=== PATIENT | female | born 1990 | race Caucasian/White ===

== ENCOUNTER → 2020-04-10 | Outpatient (CLI) | payer BC ==
--- NOTE | 2020-04-10 16:55 | RAD ---
Examination: Ultrasound right axilla HISTORY: History of lump in the right exiting COMPARISON: None available Findings/ impression: Ultrasound of the right axilla demonstrates 3.0 x 6.1 x 2.1 cm isoechogenicity echogenicity identifie d could be prominent appearing subcutaneous fat or lipoma. Electronically signed by: Ravindra Ridley MD (04/10/2020 4:53 PM) [id number]
== END ==
LOC: PMG 12:08
PROVIDERS: ATTEND Family Medicine
DX: R22.31 Localized swelling, mass and lump, right upper limb (principal)
CPT/HCPCS: 76881

== ENCOUNTER → 2020-06-05 | Outpatient (CLI) | payer BC ==
[~2020-06-05] MED LIST: SERT100T PO
== END ==
LOC: LAB 07:30
PROVIDERS: ATTEND Nurse Anesthetist, Certified Registered
DX: Z01.812 Encounter for preprocedural laboratory examination (principal); D17.9 Benign lipomatous neoplasm, unspecified; Z20.822 Contact with and (suspected) exposure to COVID-19
CPT/HCPCS: U0003

== ENCOUNTER → 2020-06-09 | Day surgery (SDC) | payer BC ==
[~2020-06-09] MED LIST changes: +ACETAMINOPHEN 500 MG TABLET PO ONE; +BUPIVACAINE-EPI 0.25%-1:200000 MPF 30 ML VIAL. INJ ONE; +BUPIVACAINE-EPI 0.25%-1:200000 MPF 30 ML VIAL. ONE; +IPRATRPIUM/ALBUTEROL 0.5/2.5MG 3 ML NEBU. NEB PRN; +IV RINGERS SOLUTION,LACTATED 1,000 ML IV SCH; +MIDAZOLAM HCL PF 2 MG/2 ML VIAL. IV ONE; +ONDANSETRON PF 4 MG/2 ML VIAL. IV PRN; +PROPOFOL 10,000 MCG/ML (20ML) VIAL IV ONE
[2020-06-09 10:59] LABS: U PREG PATIENT NEGATIVE (NEG)
--- NOTE | 2020-06-09 12:38 | PDOC4 ---
Operative Report DATE June 092020 at 1236 Preop Diagnosis Right axillary mass Post-op Diagnosis Same Operation Performed Excision of right axillary mass The patient is 29-year-old female complains of a enlarging right axillary mass. Ultrasound showed characteristics of lipoma. Procedure of excision was explained to the patient detail was benefits were also discussed including bleeding infection alternatives of this procedure also discussed with patient who seemed to understand and gave a verbal written consent to have the procedure performed. Patient was taken to the operating room placed in the supine position IV sedation was initiated by anesthesia once patient was prep was sedated her axilla was prepped and draped usual sterile fashion using ChloraPrep. An area over the mass was injected with quarter percent Marcaine with epinephrine incision made with a 15 blade scalpel this was carried down through the subcutaneous tissue using electrocautery to provide hemostasis. The mass was sharply excised and sent for pathology the mass size was 10 x 8 cm the incision size was 8 cm. Wound was then closed in 2 layers the deep layer running 3-0 Vicryl and the skin was reapproximated for subcuticular Monocryl Mastisol Steri-Strips and island dressings were applied. Patient was awakened and extubated in the operating room taken to recovery in stable condition all sponge instrument needle counts listed as correct estimated blood loss 5 mL Surgeon Josué ANESTHESIA PROPOSED: MAC, LOCAL Blood Loss 5 mL Specimen Right axillary mass 10 x 8 cm Complications None RACHAEL DA SILVA MD Jun 09, 2020 12:38
--- NOTE | 2020-06-09 12:40 | DISCH ---
DISCHARGE INSTRUCTIONS-DC Condition on Discharge Condition on Discharge: Stable Activity after Discharge Activity Instructions for Disc: Avoid exertion Diet after Discharge Diet after Discharge: Regular Wound/Incision Care Other wound/incision instructi: Betsy shower in 24 hours Contacting the DRPaul after DC Call your doctor for: If your condition worsens Follow-Up Follow up with: Dr. Da Silva in 2 weeks RACHAEL DA SILVA MD Jun 09, 2020 12:40
[2020-06-09 13:14] VITALS: BP 145/92
--- NOTE | 2020-06-12 15:08 | PATHOLOGY ---
[facility] Accession Number: [id number] . 01 Material submitted: . axilla - RIGHT AXILLARY MASS. Modifiers: right . 02 Diagnosis: Fibroadipose tissue, right axillary mass excision: - Ectopic breast tissue, showing focal stromal fibrosis, microcystic change, and apocrine metaplasia. (JPM:[facility] 06/12/2020) [facility] 06/12/2020 1237 Local . 02 Comment: There is no atypia or evidence of malignancy. (JPM:[facility] 06/12/2020) . 02 Electronically signed: . Tim Renee MD, Pathologist NPI- [id number] . 01 Gross description: . The specimen is received in formalin, labeled "Tisha Carrillo, R axillary mass". Received is a segment of yellow-mckenzie, ragged lobulated tissue measuring 8.4 x 7.7 x 2.0 cm in greatest dimensions. Sectioning reveals yellow-mckenzie, lobulated cut surfaces throughout with no grossly distinct nodules or lesions. There is a slight amount of scattered white fibrous tissue. The specimen is submitted representatively in cassettes A1 through A4. ([facility]; 06/11/2020) QA/QAC 06/11/2020 1202 Local . 02 Pathologist provided ICD-10: N60.31, N60.81 . 02 CPT . 565317 Specimen Comment: A courtesy copy of this report has been sent to [phone] Specimen Comment: Report sent to Performed at: 01 [facility] [address], [place], [place] [id number] MD Froilan Jansen MD Phone: [phone] Performed at: 02 [facility] [address], [place] [id number] MD Tim Renee MD Phone: [phone]
== END | disposition home or self-care (01) ==
LOC: SURG 09:56
PROVIDERS: ATTEND Surgery
DX: R59.0 Localized enlarged lymph nodes (principal); N60.81 Other benign mammary dysplasias of right breast; E66.9 Obesity, unspecified; Z68.41 Body mass index [BMI] 40.0-44.9, adult; Z83.3 Family history of diabetes mellitus; Z80.0 Family history of malignant neoplasm of digestive organs; Z87.891 Personal history of nicotine dependence; Z88.8 Allergy status to other drugs, medicaments and biological substances; Z79.899 Other long term (current) drug therapy; Z88.0 Allergy status to penicillin
CPT/HCPCS: 21552; 81025; 88305; J1956; J2250; J2704; J3490; J3010